=== PATIENT | female | born 1940 | race Two or more races ===

== ENCOUNTER 2018-10-02 12:47 | Emergency (ER) | payer OTHER ==
[~2018-10-02] VITALS: Ht 152.4 cm; Wt 40.8 kg
[2018-10-02 14:07] LABS: Urine Bacteria NONE SEEN /hpf (None Seen); Urine Blood Negative /uL (Negative); Urine Specific Gravity 1.011 (1.001-1.035); Urine WBC 1 /hpf (0 - 5)
[2018-10-02] MEDS ORDERED: SODIUM CHLORIDE 0.9% 500 ML IVB ONE (14:09)
[2018-10-02 14:34] LABS: Potassium 4.2 mmol/L (3.5-5.1)
[2018-10-02 14:36] LABS: Magnesium 2.5 mg/dL (1.6-2.6)
[2018-10-02 14:37] LABS: Albumin 3.9 g/dL (3.4-5.0); Calcium 9.7 mg/dL (8.5-10.1)
[2018-10-02 14:38] LABS: Blood Alcohol < 3.0 mg/dL (0-5)
[2018-10-02 14:41] LABS: Basophils # (auto) 0 uL; Basophils % (auto) 0.2 % (0.0-2.0); Eosinophils # (auto) 0 uL; Eosinophils % (auto) 0.5 % (0.0-7.0); Hematocrit 36.9 % (36.0-46.0); Hemoglobin 12.3 g/dL (12.2-16.2); Lymphocytes # (auto) 0.7 uL; Lymphocytes % (auto) 8.9 % (10.0-50.0); Mean Corpuscular Hemoglobin 33.2 pg (28.0-32.0); Mean Corpuscular Hgb Conc. 33.2 g/dL (32.0-36.0); Mean Corpuscular Volume 99.9 fL (80.0-100.0); Monocytes # (auto) 0.9 uL; Monocytes % (auto) 11.7 % (0.0-12.0); Neutrophils # (auto) 6.2 uL; Neutrophils % (auto) 78.7 % (37.0-80.0); Nucleated Red Blood Cells % 0.1 %; Platelet Count (auto) 340 10^3/uL (140-450); Red Cell Distribution Width 15.7 % (11.8-14.3); White Blood Cell 7.9 10^3/uL (4.4-10.8)
[2018-10-02 14:43] LABS: Bilirubin, Total 0.4 mg/dL (0.2-1.0); Total Protein 7.5 g/dL (6.4-8.2)
[2018-10-02 15:00] LABS: INR 0.88 (0.9-1.15); Partial Thromboplastin Time 23.6 sec (23.78-33.04); Prothrombin Time 9.5 sec (9.27-12.13)
[2018-10-02 15:01] VITALS: BP 166/80
== END 2018-10-02 16:38 | disposition home or self-care (01) ==
LOC: ER 12:47
DX: R42 Dizziness and giddiness (principal); J44.9 Chronic obstructive pulmonary disease, unspecified; I10 Essential (primary) hypertension; E07.9 Disorder of thyroid, unspecified; Z88.2 Allergy status to sulfonamides
CPT/HCPCS: 36415; 70450; 71045; 80053; 80320; 81001; 83735; 84484; 85025; 85610; 85730; 93005; 96360; 96361; 99284; J7040